=== PATIENT | male | born 1980 | race Caucasian/White ===

== ENCOUNTER 2016-04-03 00:39 | Emergency (ER) | payer OTHER ==
[2016-04-03 00:49] VITALS: BP 122/78; PULSE 101; RESP 18; TEMP 98.4
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
[2016-04-03 04:44] LABS: Hepatitis C Virus IgG Index 0.02
[2016-04-03 05:01] LABS: Hepatitis B Surface Antibody Negative (Negative); Hepatitis C Virus IgG Ab Negative (Negative)
[2016-04-04 06:53] LABS: HIV-1/HIV-2 Ab Screen NONREAC (NON REAC)
== END 2016-04-03 02:40 | disposition home or self-care (01) ==
LOC: EC 00:39
DX: Z77.21 Contact with and (suspected) exposure to potentially hazardous body fluids (principal); Y99.0 Civilian activity done for income or pay; S60.519A Abrasion of unspecified hand, initial encounter; W25.XXXA Contact with sharp glass, initial encounter; Z88.0 Allergy status to penicillin; Z91.018 Allergy to other foods
CPT/HCPCS: 36415; 86701; 86704; 86706; 86803; 87340; 87389; 99282

== ENCOUNTER 2017-12-27 21:05 | Emergency (ER) | payer OTHER ==
[2017-12-27 21:24] VITALS: BP 132/86; PULSE 101; RESP 20; TEMP 98.7
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
--- NOTE | 2017-12-27 21:53 | XR ---
EXAMINATION TYPE: XR wrist complete RT DATE OF EXAM: 12/27/2017 COMPARISON: NONE HISTORY: Pain TECHNIQUE: 4 views FINDINGS: Carpal bones appear intact. I see no fracture nor dislocation. There are no erosions. Scaph oid appears normal. IMPRESSION: Normal right wrist
--- NOTE | 2017-12-27 21:54 | XR ---
EXAMINATION TYPE: XR hand complete RT DATE OF EXAM: 12/27/2017 COMPARISON: NONE HISTORY: Pain TECHNIQUE: 3 views FINDINGS: I see no fracture nor dislocation. Metacarpals are intact. There are no erosions. Joint spa tamra are normal. IMPRESSION: Negative right hand exam.
== END 2017-12-27 22:16 | disposition home or self-care (01) ==
LOC: EC 21:05
DX: S80.211A Abrasion, right knee, initial encounter (principal); M25.531 Pain in right wrist; Z88.0 Allergy status to penicillin; Z91.018 Allergy to other foods; Y04.8XXA Assault by other bodily force, initial encounter; Y92.89 Other specified places as the place of occurrence of the external cause; Y99.0 Civilian activity done for income or pay
CPT/HCPCS: 99284

== ENCOUNTER → 2018-01-04 | Outpatient (CLI) | payer OTHER ==
--- NOTE | 2018-01-04 13:00 | XR ---
EXAMINATION TYPE: XR hand complete RT, XR wrist complete RT DATE OF EXAM: 01/04/2018 CLINICAL HISTORY: pain TECHNIQUE: Frontal, lateral and oblique images of the right hand are obtained. COMPARISON: 12/27/2017 FINDINGS: There is no acute fracture/dislocation evident. The joint spaces appear within normal limi ts. The overlying soft tissue appears unremarkable. IMPRESSION: There is no acute fracture or dislocation ICD 10 NO FRACTURE, INITIAL EVALUATION EXAMINATION TYPE: XR hand complete RT, XR wrist complete RT DATE OF EXAM: 01/04/2018 CLINICAL HISTORY: pain TECHNIQUE: Frontal, lateral and oblique images of the right wrist are obtained. COMPARISON: 12/27/2017 FINDINGS: There is no acute fracture/dislocation evident. The joint spaces appear within normal limits. The o verlying soft tissue appears unremarkable. IMPRESSION: There is no acute fracture or dislocation seen. ICD 10 NO FRACTURE, INITIAL EVALUATION
== END | disposition home or self-care (01) ==
LOC: RADXRMAIN 12:20
PROVIDERS: ATTEND Emergency Medicine
DX: S60.211D Contusion of right wrist, subsequent encounter (principal); S60.221D Contusion of right hand, subsequent encounter

== ENCOUNTER 2018-06-17 21:45 | Emergency (ER) | payer BC, OTHER ==
[2018-06-17 21:51] VITALS: TEMP 98.5
[2018-06-17] MEDS ORDERED: FAMOTIDINE 20 MG/2 ML VIAL IV STA (22:16)
[2018-06-17] MEDS ORDERED: methylPREDNISolone SOD SUCCI 125 MG/2 ML VIAL IV STA (22:16)
[2018-06-17] MEDS ORDERED: diphenhydrAMINE 50 MG/ML 1 ML VIAL IVP STA (22:16)
[2018-06-17 23:17] VITALS: BP 113/78; PULSE 67; RESP 16
--- NOTE | 2018-06-17 23:21 | ED ---
General Adult HPI - General Chief complaint: Allergic Reaction Stated complaint: Allergic Reaction Time Seen by Provider: 06/17/18 22:10 Source: patient, RN notes reviewed Mode of arrival: ambulatory Limitations: no limitations - History of Present Illness Initial comments: 37-year-old male presents to the emergency department for ALLERGIC reaction. Nayan lamar states he has had a severe reaction intermittently for the past 4 years. States that he is ALLERGIC to many foods and this is generally will cause this. States he has swelling along the lower right eye and nasopharynx area. Denies any swelling of the throat. Patient states when this 70 usually goes away within 24 hours but this time it has been in for about 2 days. Denies any difficulty breathing or difficulty swallowing. 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 Patient denies any swelling of the lips tongue or throat. Has not taken Benadryl today.Patient has no other complaints at this time including shortness of breath, chest pain, abdominal pain, nausea or vomiting, headache, or visual changes. - Related Data Previous Rx's Medication Instructions Recorded predniSONE 50 mg PO DAILY #5 tablet 06/17/18 Allergies Allergy/AdvReac Type Severity Reaction Status Date / Time barley Allergy Unknown Verified 06/17/18 22:05 celery Allergy Unknown Verified 06/17/18 22:05 corn Allergy Unknown Verified 06/17/18 22:05 oats Allergy Unknown Verified 06/17/18 22:05 Penicillins Allergy Anaphylaxis Verified 06/17/18 22:05 soy Allergy Unknown Verified 06/17/18 22:05 wheat Allergy Unknown Verified 06/17/18 22:05 Review of Systems ROS Statement: Those systems with pertinent positive or pertinent negative responses have been documented in the HPI. ROS Other: All systems not noted in ROS Statement are negative. Past Medical History Past Medical History: No Reported History History of Any Multi-Drug Resistant Organisms: None Reported Past Surgical History: Ear Surgery Past Psychological History: No Psychological Hx Reported Smoking Status: Never smoker Past Alcohol Use History: None Reported Past Drug Use History: None Reported General Exam Limitations: no limitations General appearance: alert, in no apparent distress Head exam: Present: atraumatic, normocephalic, normal inspection Eye exam: Present: normal appearance, PERRL, EOMI, periorbital swelling (Minimal amount of superior periorbital edema of the right eye). Absent: scleral icterus, conjunctival injection ENT exam: Present: normal exam, normal oropharynx (No swelling of the lips tongue or throat, oropharynx patent), mucous membranes moist, TM's normal bilaterally, normal external ear exam Neck exam: Present: normal inspection, full ROM. Absent: tenderness, me ningismus, lymphadenopathy Respiratory exam: Present: normal lung sounds bilaterally. Absent: respiratory distress, wheezes, rales, rhonchi, stridor Cardiovascular Exam: Present: regular rate, normal rhythm, normal heart sounds. Absent: systolic murmur, diastolic murmur, rubs, gallop, clicks Neurological exam: Present: alert, oriented X3, CN II-XII intact Psychiatric exam: Present: normal affect, normal mood Course Vital Signs 06/17/18 06/17/18 21:47 22:51 Temperature 98.5 F Pulse Rate 64 67 Respiratory 17 16 Rate Blood Pressure 138/86 113/78 O2 Sat by Pulse 97 97 Oximetry Medical Decision Making - Medical Decision Making 37-year-old male presents to the emergency department for ALLERGIC reaction. States this has been intermittent for several years. States steroids usually help. Denies any swelling of the lips tongue or throat. No difficulty breathing. Does admit to swelling of the right eye as well as nasopharynx. On exam patient does have minimal superior periorbital edema of the right eye. No other edema or rash noted. Oropharynx is patent. Patient was given IV Solu- Medrol, Benadryl, Pepcid. Slight improvement of symptoms. Patient will be give n prescroption of rednisone. Discussed following up with primary care returning here if he has any worsening symptoms. Disposition Clinical Impression: Allergic reaction Disposition: HOME SELF-CARE Condition: Good Instructions (If sedation given, give patient instructions): General Allergic Reaction (ED) Additional Instructions: Please take Benadryl as needed. Take steroids starting tomorrow. Follow-up with primary care in 1-2 days. If symptoms are worsening return immediately to the emergency department. Prescriptions: predniSONE 50 mg PO DAILY #5 tablet Is patient prescribed a controlled substance at d/c from ED?: No Referrals: Randi Atwood MD [STAFF PHYSICIAN] - 1-2 days Time of Disposition: 23:20
== END 2018-06-17 23:28 | disposition home or self-care (01) ==
LOC: EC 21:45
DX: T78.40XA Allergy, unspecified, initial encounter (principal); Z91.018 Allergy to other foods; Z88.0 Allergy status to penicillin
CPT/HCPCS: 99283; 96374; 96375 ×2; J1200; J2930